=== PATIENT | female | born 1955 | race Caucasian/White ===

== ENCOUNTER → 2019-02-08 | Outpatient (CLI) | payer MEDICARE ==
[2018-05-08 17:02] VITALS: BP 159/71
[~2019-02-08] MED LIST: ALBU2.5V8 INH; CEFP200T PO; DILT240C2 PO
--- NOTE | 2019-02-11 15:45 | RAD ---
DATE: 02/08/2019. EXAM: DIGITAL SCREEN BILAT W/CAD. HISTORY: Routine mammographic screening. COMPARISON: None available. This is interpreted as a baseline study. This study was interpreted with the benefit of Computerized Aided Detection (CAD). FINDINGS: Breast Density: HETERO The breast parenchyma is heterogenously dense, which could reduce sensitivity of mammography. Breast parenchyma level C.. There are multiple circumscribed are secured nodules bilaterally. These are seen inferomedially on the right, superolaterally on the right, and superolaterally on the left. Indeterminate calcifications are seen inferiorly on the right superimposed on the aforementioned nodule. Others are seen centrally and inferiorly on the left. See annotations. Other coarse and scattered calcifications appear benign. BI-RADS CATEGORY: 0 INCOMPLETE: NEEDS ADDITIONAL IMAGING EVALUATION AND/OR PRIOR MAMMOGRAMS FOR COMPARISON.. RECOMMENDED FOLLOW-UP: ADD ADDITIONAL IMAGING. 1. Magnification of indeterminate calcifications inferiorly on the right which may be artifactual or secondary to skin contamination. 2. Magnification of indeterminate calcifications inferiorly and centrally on the left. 3. Sonography of both breasts to confirm benignity of multiple bilateral circumscribed and obscured nodules at baseline. PQRS compliance statement: Patient information was entered into a reminder system with a target due date (now) for the next mammogram. Mammography is a sensitive method for finding small breast cancers, but it does not detect them all and is not a substitute for careful clinical examination. A negative mammogram does not negate a clinically suspicious finding and should not result in delay in biopsying a clinically suspicious abnormality. "Our facility is accredited by the [employer] Mammography [employer]."
== END | disposition home or self-care (01) ==
LOC: MAMMO 09:25
PROVIDERS: ATTEND Family Medicine
DX: Z12.31 Encounter for screening mammogram for malignant neoplasm of breast (principal); N64.89 Other specified disorders of breast; N63.20 Unspecified lump in the left breast, unspecified quadrant; N63.10 Unspecified lump in the right breast, unspecified quadrant
CPT/HCPCS: 77067

== ENCOUNTER → 2019-02-26 | Outpatient (CLI) | payer MEDICARE ==
[2018-05-08 17:02] VITALS: BP 159/71
--- NOTE | 2019-02-26 15:02 | RAD ---
DATE: 02/26/2019 EXAM: DIGITAL DIAGNOSTIC BILATERAL, BREAST BILATERAL HISTORY: Abnormal mammogram COMPARISON: 02/08/2019 screen mammographic exam This study was interpreted with the benefit of Computerized Aided Detection (CAD). Breast Density: HETERO The breast parenchyma is heterogenously dense, which could reduce sensitivity of mammography. Breast parenchyma level C. FINDINGS: Upon spot magnification imaging of the left breast in CC and mediolateral projections, a few groups of punctate calcifications are again identified and are indeterminate. No definite or significant pleomorphism. Scattered benign-appearing punctate calcifications also seen. Right lower inner breast mass with punctate calcifications again seen. Punctate calcifications which are associated with a nodule involving the right breast noted. Bilateral breast ultrasound exam was performed. Left upper-outer breast ultrasound imaging is unremarkable with no mass or cyst identified. Ultrasound imaging of the right breast 9:00 region 7 cm from the nipple demonstrates a lobulated cystic structure with internal echoes. This measures up to 1.2 cm x 0.8 cm x 0.7 similar tall. No masses or cysts are identified to involve the right upper-outer breast. IMPRESSION: Indeterminate calcifications and complicated right lower inner breast cystic structure. BI-RADS CATEGORY: 3 PROBABLY BENIGN FINDING(S)-SHORT INTERVAL FOLLOW-UP SUGGESTED RECOMMENDED FOLLOW-UP: 6M 6 MONTH FOLLOW-UP. Six-month follow-up bilateral mammogram and right breast ultrasound recommended. PQRS compliance statement: Patient information was entered into a reminder system with a target due date for the next mammogram. Mammography is a sensitive method for finding small breast cancers, but it does not detect them all and is not a substitute for careful clinical examination. A negative mammogram does not negate a clinically suspicious finding and should not result in delay in biopsying a clinically suspicious abnormality. "Our facility is accredited by the [employer] Mammography [employer]."
== END | disposition home or self-care (01) ==
LOC: MAMMO 12:48
PROVIDERS: ATTEND Family Medicine
DX: N64.89 Other specified disorders of breast (principal)
CPT/HCPCS: 76641; 77066

== ENCOUNTER → 2019-06-24 | Outpatient (CLI) | payer MEDICARE ==
[2018-05-08 17:02] VITALS: BP 159/71
--- NOTE | 2019-06-24 11:51 | RAD ---
MR#: [id number] Date of Study: 06/24/2019 Ordering Physician: LUDIVINA WOOD, Referring Physician: ANNA CHASE Tech: APPROVED REPORT Test Type: Exercise Stress Nurse/Tech: INDRA Figueroa Test Indications: A Fib insurance ok for TM only Cardiac History: A Fib Medications: see EHR Medical History: see EHR Resting ECG: SR Resting Heart Rate: 95 bpm Resting Blood Pressure: 162/86mmHg Pretest Chest Pain: None POST EXERCISE Reason for Termination: Patient request, Reached target heart rate Target HR: 131 Max HR: 19339 bpm 92% of Maximum Predicted HR: 155 bpm Exercise duration: 1:48 min:sec, 1 Stage Max Blood Pressure: 195/80mmHg Blood Pressure response to exercise: Normal blood pressure response during stress. Chest Pain: No. INTERPRETATION Stress EKG Conclusion: poor exercise tolerance Conclusion 1. This is a treadmill EKG test only 2. 1. Baseline EKG is unremarkable. 3. 2. Patient had a severely decreased exercise tolerance. 4. 3. This is unfortunately a nondiagnostic stress test. Recommendations 1. Recommend further evaluation with a myocardial perfusion study using chemical means. Signed by : Ludivina Wood, Electronically Approved : 06/24/2019 11:51:12
== END | disposition home or self-care (01) ==
LOC: NM 08:49
PROVIDERS: ATTEND Internal Medicine Cardiovascular Disease
DX: I48.91 Unspecified atrial fibrillation (principal)
CPT/HCPCS: 93017

== ENCOUNTER → 2019-11-29 | Outpatient (CLI) | payer MEDICARE ==
[2018-05-08 17:02] VITALS: BP 159/71
--- NOTE | 2019-11-29 16:27 | RAD ---
Examination: 1. Bilateral digital diagnostic mammogram. 2. Limited right breast ultrasound. INDICATION: 64-year-old woman presenting for short-term follow-up probably benign findings in both breasts initially recalled from baseline screening a year ago. She is due for screening. COMPARISON: Bilateral mammogram of 02/08/2019, bilateral digital diagnostic mammogram of 02/26/2019, and limited bilateral breast ultrasound of 02/26/2019. TECHNIQUE: Bilateral CC and MLO views were obtained with 2-D and 3-D technique and included magnification views of the left breast in the CC and true lateral projections. Images were reviewed with computer aided detection. Targeted ultrasound of the right breast was then pursued. FINDINGS: Heterogeneously dense breast parenchyma. Nodular parenchymal pattern compatible with benign cystic changes redemonstrated along with multiple lucent centered calcifications bilaterally, compatible with benign fat necrosis. Targeted ultrasound of the right breast identified laterally multiple sonographically benign cysts. The oval 9 mm mass in the medial right breast initially recall from screening was not as well demonstrated by ultrasound at this visit but on the mammogram shows layering calcifications, likely representing an oil cyst, especially in light of the several other cysts and oil cysts present in the right breast. This is considered benign and recommended for return to routine screening. Additional mammographic views of the left breast confirm the presence of a pair of calcifications in linear configuration in the superior left breast at the approximate 12:30 o'clock position 7.8 cm from the nipple on the full field CC view that vary in size and shape and could reflect early fragmented casting type calcifications with a differential diagnosis of a hyalinizing fibroadenoma, papilloma, or stromal fibrosis. These are mildly suspicious and stereotactic biopsy is recommended. IMPRESSION: 1. Benign cystic change in the right breast. Recommend right breast return to routine screening next due in one year. 2. Suspicious microcalcifications in the superior left breast. Recommend left breast stereotactic biopsy. Discussed with Dr. Burks by telephone at 3:08 PM on November 29, 2019. BI-RADS Category 4 Findings suspicious for malignancy. Biopsy should be considered. Electronically signed by: Lucille Rice MD (11/29/2019 4:24 PM) [id number]
== END ==
LOC: MAMMO 12:51
PROVIDERS: ATTEND Family Medicine
DX: R92.1 Mammographic calcification found on diagnostic imaging of breast (principal); N60.01 Solitary cyst of right breast
CPT/HCPCS: 76641; 77066; G0279; 77062

== ENCOUNTER → 2020-11-28 | Outpatient (CLI) | payer MEDICARE ==
[2018-05-08 17:02] VITALS: BP 159/71
[2020-11-28 08:57] LABS: ALBUMIN/GLOBULIN RATIO 1.1 (1.0-1.7); CALCIUM 9.1 mg/dL (8.5-10.1); GFR 55.3; POTASSIUM 4.1 mmol/L (3.5-5.1); TOTAL BILIRUBIN 0.6 mg/dL (0.2-1.0); TOTAL PROTEIN 7.8 g/dL (6.4-8.2)
== END ==
LOC: LAB 08:08
PROVIDERS: ATTEND Internal Medicine Cardiovascular Disease
DX: I10 Essential (primary) hypertension (principal)
CPT/HCPCS: 36415; 80053; 80061

== ENCOUNTER → 2020-12-12 | Outpatient (CLI) | payer MEDICARE ==
[2018-05-08 17:02] VITALS: BP 159/71
--- NOTE | 2020-12-12 10:33 | CARD ---
MR#: [id number] Date of Study: 12/12/2020 Ordering Physician: LUDIVINA WOOD, Referring Physician: LUDIVINA WOOD, Tech: Ulisses Katz [facility] APPROVED REPORT EXAM: Two-dimensional and M-mode echocardiogram with Doppler and color Doppler. Other Information Quality : FairHR: 69bpm Rhythm : NSR INDICATION Atrial Fibrillation RISK FACTORS Hypertension Obesity 2D DIMENSIONS Left Atrium(2D)3.9 (1.6-4.0cm)IVSd1.4 (0.7-1.1cm) Aortic Root(2D)3.0 (2.0-3.7cm)LVDd4.8 (3.9-5.9cm) LVOT Diameter1.9 (1.8-2.4cm)PWd1.4 (0.7-1.1cm) LVDs3.2 (2.5-4.0cm)FS (%) 33.7 % SV66.9 mlLVEF(%)62.4 (>50%) Aortic Valve AoV Peak Juan.119.6cm/sAoV VTI25.0cm AO Peak GR.5.7mmHgLVOT Peak Juan.114.1cm/s LVOT VTI 23.49cmAO Mean GR.3mmHg GERMAN (VMAX)2.44la9GJA (VTI)2.64cm2 Mitral Valve MV E Rrpqrtgj86.9cm/sMV E Peak Gr.4mmHg MV DECEL [id number] A Cupfvzcd499.5cm/s MV E Mean Gr.1mmHgE/A Ratio0.8 Pulmonary Valve PV Peak Ijhygjks35.7cm/sPV Peak Grad.3mmHg Tricuspid Valve TR P. Mkszroaz735gx/sTR Peak Gr.19mmHg Pulmonary Vein S1 Szxjlpci08.5cm/sD2 Sfrfrrdv46.1cm/s LEFT VENTRICLE The left ventricle is normal size. There is mild to moderate concentric left ventricular hypertrophy. The left ventricular systolic function is normal and the ejection fraction is within normal range. E F 55% There is normal LV segmental wall motion. Tissue Doppler imaging reveals mild left ventricular diastolic dysfunction. No left ventricle thrombus noted on this study. There is no ventricular septal defect visualized. There is no left ventricular aneurysm. There is no mass noted in the left ventric le. RIGHT VENTRICLE The right ventricle is normal size. There is normal right ventricular wall thickness. The right ventr icular systolic function is normal. ATRIA The left atrium size is normal. The right atrium size is normal. The interatrial septum is intact wit h no evidence for an atrial septal defect or patent foramen ovale as noted on 2-D or Doppler imaging. AORTIC VALVE The aortic valve is normal in structure and function. Doppler and Color Flow revealed no significant aortic regurgitation. There is no significant aortic valvular stenosis. There is no aortic valvular v egetation. MITRAL VALVE The mitral valve is normal in structure and function. There is no evidence of mitral valve prolapse. There is no mitral valve stenosis. Doppler and Color-flow revealed trace mitral regurgitation. TRICUSPID VALVE The tricuspid valve is normal in structure and function. Doppler and Color Flow revealed trace to mil d tricuspid regurgitation. There is no tricuspid valve prolapse or vegetation. There is no tricuspid valve stenosis. PULMONIC VALVE Doppler and Color Flow revealed no pulmonic valvular regurgitation. There is no pulmonic valvular alexis nosis. GREAT VESSELS The aortic root is normal in size. The ascending aorta is normal in size. The IVC is normal in size a nd collapses >50% with inspiration. PERICARDIAL EFFUSION There is no pleural effusion. There is no evidence of significant pericardial effusion. Critical Notification Critical Value: No <Conclusion> The left ventricular systolic function is normal and the ejection fraction is within normal range. EF 55% There is normal LV segmental wall motion. Signed by : Ludivina Wood, Electronically Approved : 12/12/2020 10:33:19
== END ==
LOC: ECHO 07:57
PROVIDERS: ATTEND Internal Medicine Cardiovascular Disease
DX: I07.1 Rheumatic tricuspid insufficiency (principal); I48.0 Paroxysmal atrial fibrillation
CPT/HCPCS: 93306

== ENCOUNTER → 2021-03-05 | Outpatient (CLI) | payer MEDICARE ==
[2018-05-08 17:02] VITALS: BP 159/71
[2021-03-05 11:29] LABS: ALBUMIN 4.1 g/dL (3.4-5.0); ALBUMIN/GLOBULIN RATIO 1.3 (1.0-1.7); CALCIUM 8.9 mg/dL (8.5-10.1); GFR 55.3; POTASSIUM 4.4 mmol/L (3.5-5.1); TOTAL BILIRUBIN 0.9 mg/dL (0.2-1.0); TOTAL PROTEIN 7.2 g/dL (6.4-8.2)
== END ==
LOC: LAB 08:19
PROVIDERS: ATTEND Internal Medicine Cardiovascular Disease
DX: I50.32 Chronic diastolic (congestive) heart failure (principal); E78.5 Hyperlipidemia, unspecified
CPT/HCPCS: 36415; 80053; 80061